=== PATIENT | female | born 1970 | race Caucasian/White ===

== ENCOUNTER 2017-12-14 20:24 | Emergency (ER) | payer OTHER ==
--- NOTE | 2017-12-14 20:29 | PDOC ---
Rapid Medical Evaluation Time Seen by Provider: 12/14/17 20:27 Medical Evaluation: 12/14/17 20:28 I have performed a brief in-person evaluation of this patient. The patient presents with a chief complaint of: anxiety, SOB, GE for 3 hours Pertinent physical exam findings: neurological exam WNL. I have ordered the following: nothing The patient will proceed to the ED for further evaluation. Discharge Disposition - Diagnosis Anxiety - Referrals - Patient Instructions - Post Discharge Activity
[2017-12-14 20:31] VITALS: BP 147/84; PULSE 103; TEMP 98.4; BMI 24.5
[2017-12-14] MEDS ORDERED: diazePAM 5 MG TABLET PO ONE (20:51)
--- NOTE | 2017-12-14 20:52 | PDOC ---
History of Present Illness - General Chief Complaint: Psychiatric Stated Complaint: PAIN Time Seen by Provider: 12/14/17 20:27 - History of Present Illness Initial Comments: 12/14/17 20:51 46-year-old female presents for anxiety. She states she is very nervous she is unsure why. She denies any suicidal homicidal ideation. She states she feels safe at home. She has no comorbidities. Past History - Past Medical History Allergies/Adverse Reactions: Allergies Allergy/AdvReac Type Severity Reaction Status Date / Time No Known Allergies Allergy Verified 12/14/17 20:31 COPD: No Other medical history: fibromylegia - Immunization History Immunization Up to Date: No - Suicide/Smoking/Psychosocial Hx Smoking History: Never smoked Have you smoked in the past 12 months: No Information on smoking cessation initiated: No Hx Alcohol Use: No Drug/Substance Use Hx: No Substance Use Type: None Review of Systems - Review of Systems Psychiatric: Yes: Anxiety All Other Systems: Reviewed and Negative *Physical Exam - Vital Signs Last Vital Signs Temp Pulse Resp BP Pulse Ox 98.4 F 103 H 17 147/84 100 12/14/17 20:28 12/14/17 20:28 12/14/17 20:28 12/14/17 20:28 12/14/17 20:28 - Physical Exam Comments: GENERAL: The patient is awake, alert, and fully oriented, in no acute distress and tearful during the examination. HEAD: Normal with no signs of trauma. EYES: Pupils equal, round and reactive to light, extraocular movements intact, sclera anicteric, conjunctiva clear. ENT: Ears normal, nares patent, oropharynx clear without exudates. Moist mucous membranes. NECK: Normal range of motion, supple without lymphadenopathy, JVD, or masses. LUNGS: Breath sounds equal, clear to auscultation bilaterally. No wheezes, and no crackles. HEART: Regular rate and rhythm, normal S1 and S2 without murmur, rub or gallop. ABDOMEN: Soft, nontender, normoactive bowel sounds. No guarding, no rebound. No masses. EXTREMITIES: Normal range of motion, no edema. No clubbing or cyanosis. No cords, erythema, or tenderness. NEUROLOGICAL: Cranial nerves II through XII grossly intact. Normal speech, normal gait. PSYCH: Normal mood, normal affect. SKIN: Warm, Dry, normal turgor, no rashes or lesions noted. 12/14/17 20:52 Medical Decision Making - Medical Decision Making We'll treat her with Valium and reevaluate her 12/14/17 20:52 12/14/17 21:18\ Patient feels less nervous after Valium. No suicidal or homicidal ideation she feels safe at home. I will have her follow-up with psychiatry *DC/Admit/Observation/Transfer Diagnosis at time of Disposition: Anxiety - Discharge Dispostion Disposition: HOME Condition at time of disposition: Improved Decision to Admit order: No - Referrals Referrals: Brooklyn De La Garza [Primary Care Provider] - Sameer Sow MD [Staff Physician] - - Patient Instructions Printed Discharge Instructions: Anxiety Disorders Additional Instructions: Return to the emergency room should her symptoms worsen or return. Follow up with psychiatry in 1-2 days for further evaluation and treatment options. - Post Discharge Activity
[2017-12-14] MEDS ORDERED: diazePAM 5 MG TABLET ONE (20:58)
== END 2017-12-14 21:30 | disposition home or self-care (01) ==
LOC: JERFT 20:24
DX: F41.9 Anxiety disorder, unspecified (principal)
CPT/HCPCS: 99281-25